=== PATIENT | male | born 1940 | race Caucasian/White ===

== ENCOUNTER 2023-12-26 07:05 | Outpatient (CLI) | payer OTHER, SELFPAY ==
--- NOTE | 2023-12-26 07:15 | MR_ITS ---
[address] [address] Phone:?[phone] Fax:?[phone] Referring Physician Information: Petar Leblanc M.D. [address] [address] Phone:?[phone] Fax:?[phone] Patient:Loren Ríos D.O.B:?[id number] Sex:?Male Phone:?[phone] [facility] MRN:?[id number] Exam Date:?12/26/2023 EXAM: MRI of the RIGHT HIP, without contrast CLINICAL: Male, 83 years old, with right hip pain extending down right leg. INDICATION: Evaluate for stress fracture versus other hip derangement etiology. PRIOR SURGERY: None reported. PLAIN FILMS: 12/23/2023 radiographic series of the right hip. COMPARISONS: No prior MRIs available. TECHNICAL: Using a 1.5T MR scanner: 3.0 mm?coronals: PD, T2 3.0 mm?sagittals: PD, T2 4.0 mm oblique?axials: PD 4.0 mm?axials: PDFS 5.0 mm?coronals: T1, STIR of pelvis including hips SEDATION: None. CONTRAST: None. IMPRESSION: 1. No stress/occult fracture or marrow edema. 2. Broad-based degeneration of the acetabular labrum with some additional irregularity/tear anterosuperiorly, of indeterminate significance for age. 3. 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 - Mild femoral cam morphology with potential to contribute cam mechanism of any clinically suspected LUCERO. - High normal volume hip without acetabular retroversion. - Fibrocystic osseous lesion of the anterosuperior femoral head-neck junction which can be associated with residua of LUCERO. 4. No myotendinous abnormalities. 5. No convincing full-thickness right hip chondromalacia/osteoarthritis or pathologic effusion. FINDINGS: Hip joint: Effusion: Physiologic hip effusion. Ganglion/paralabral cyst: None. Articular cartilage: Uniform, without demonstrable full-thickness chondromalacia or premature osteoarthritis. Loose bodies: None. Labrum: There appears some ill-defined signal alteration in keeping with degeneration, irregularity and more focal linear tear of the anterosuperior labrum (oblique axial PD series 6, images 18-12; sagittal images 26-22). The posterosuperior labrum also appears associated with degeneration. Proximal femur: No femoral occult fracture, bone stress injury, marrow edema or osteonecrosis. However, there is suspected fibrocystic osseous lesion of subcortical marrow of the anterosuperior femoral head-neck junction, a finding which can be associated with residua of femoroacetabular impingement (coronal STIR series 2, images 16- 14). Mild decreased sulcus and decreased femoral head-neck offset of the anterosuperior into anteroinferior femoral head-neck junction reflects femoral cam morphology with potential to predispose cam mechanism of any clinically evident femoroacetabular impingement (LUCERO). Based on oblique axial series 6, image 14 at approximately 2:30 o'clock anterosuperiorly, the maximum femoral alpha angle measures mildly elevated at approximately 60?. Acetabulum: No subchondral cysts, periacetabular ossicles or marrow edema. Version: No acetabular retroversion. Coverage: Right lateral center edge (CE) angle measures high normal at approximately 37? (corrected for any pelvic tilt) (normal 25?-39?), midline coronal series 4, image 14. Ligamentum teres: Intact and unremarkable. Pelvis osseous structures: Sacrum: No stress/insufficiency fractures or marrow edema/pathology. Sacroiliac joints: No demonstrable sacroiliitis. Pubic rami: No stress/insufficiency fractures or marrow edema/pathology. Symphysis pubis: No ongoing osteitis pubis. AIIS: Superoinferior extent: 3 mm superior to the level of the acetabular roof. Anterior extent: 13 mm anterior to the anterior mid-acetabular rim. Myotendinous structures: Gluteus abductors: No convincing insertional tendinopathy or tear of gluteus minimus or medius. Adductors: No demonstrable tendinopathy or strain/tear. Rectus abdominis: No demonstrable tear/strain. Pre-pubic aponeurotic complex: Intact, without evidence of common rectus abdominis-adductor longus aponeurosis or pubic plate lesion. Hamstrings: Intact semimembranosus, semitendinosus and biceps femoris tendons, without tendinopathy or tear. Flexors: Intact iliopsoas and rectus femoris, without strain/tear. External rotators: Intact, without demonstrable ischiofemoral impingement. Gluteal aponeurotic fascia and IT band: Unremarkable. Bursae: No demonstrable trochanteric, iliopsoas, or iliopectineal bursitis. Intrapelvic contents: Free fluid: No free fluid seen within the pelvis. Pelvic viscera: No discrete intrapelvic mass is identified. Lymph nodes: No pathologically enlarged lymphadenopathy. Neurovascular structures: No discrete cyst, mass or other compression upon the portions visualized of sciatic or femoral nerves. [facility] Electronically signed on 12/26/2023 11:23:00 AM by Bartolome Ward M.D.
== END 2023-12-26 07:06 | disposition home or self-care (01) ==
PROVIDERS: PCP Family Medicine; Visit Provider Orthopaedic Surgery Sports Medicine
DX: M25.551 Pain in right hip (principal)
CPT/HCPCS: 73721

== ENCOUNTER 2024-01-20 08:04 | Outpatient (CLI) | payer OTHER, SELFPAY ==
--- NOTE | 2024-01-20 08:15 | MR_ITS ---
Patient: DAGO HUNTER Facility:?[facility] Patient ID:?[id number] Site Patient ID:?[id number]. Site :?[id number] Study:?MRI-Spine Lumbar W/O-01/20/2024 8:57:33 AM Ordering Physician:RUFINO HARRINGTON Final Report: Indication: Lumbar radiculopathy. Technique: T2, T1, and STIR sagittal as well as T1 and T2 axial sequences were obtained. No IV contrast. Comparison: X-rays from [facility] dated 01/15/2024. Findings: There is low-grade degenerative retrolisthesis at L1-2 and L2-3, and low-grade degenerative anterolisthesis at L4-5 and L5-S1. Alignment appears unchanged from 01/15/2024. No evidence for recent fracture, worrisome bone lesion or pars defect. Mild chronic loss of anterior vertebral body height at the T12 level, unchanged. Degenerative changes result in moderate thecal sac effacement at the L2-3, L3-4 and L4-5 levels. No high-grade central canal stenosis. The conus and cauda equina are unremarkable, with the tip of the cord at the L1 level. Renal cysts noted. Minor degenerative changes involving both sacroiliac joints. T12-L1: Moderate disc degeneration. Mild facet osteoarthritis. Mild foraminal narrowing. L1-2: Mild disc and facet degenerative changes. The foramina are patent. L2-3: Moderate disc degeneration. Moderate facet osteoarthritis. Asymmetric right posterolateral disc bulging with potential impingement on the right L2 root as it exits the foramen. Narrowing of the neural foramina, mild left and moderate right. Moderate narrowing of the central canal and both subarticular recesses. L3-4: Moderate disc and bilateral facet degenerative changes. Moderate narrowing of the central canal and both subarticular recesses. Mild left and moderate right foraminal narrowing. L4-5: Severe bilateral facet osteoarthritis. Moderate disc degeneration. Moderate narrowing of both subarticular recesses. Mild right and moderate left foraminal narrowing. L5-S1: Severe bilateral facet osteoarthritis. Disc degeneration, most pronounced laterally on the left where interbody spurring contributes to low-grade foraminal narrowing. Impression: 1. There is moderate thecal sac effacement at the mid lumbar interspace levels. No high-grade central canal stenosis in the lumbar region. 2. Severe facet osteoarthritis at L4-5 and L5-S1. Moderate facet osteoarthritis at L2-3 and L3-4. 3. Asymmetric right posterolateral disc bulging at L2-3, with potential impingement on the right L2 root exiting the right foramen. 4. Multilevel mild to moderate narrowing of the neural foramina and subarticular recesses as noted. Dictated by Kolton Emerson MD @ 01/20/2024 2:51:23 PM Signed by:?Kolton Emerson MD @01/20/2024 2:51:23 PM (Electronic Signature)
== END 2024-01-20 08:05 | disposition home or self-care (01) ==
PROVIDERS: PCP Family Medicine; Visit Provider Family Medicine
DX: M54.16 Radiculopathy, lumbar region (principal); M47.896 Other spondylosis, lumbar region; M51.26 Other intervertebral disc displacement, lumbar region
CPT/HCPCS: 72148

== ENCOUNTER 2024-02-17 08:11 | Outpatient (CLI) | payer OTHER, SELFPAY | END 2024-02-17 08:12 | disposition home or self-care (01) | LOC: INJ CL 08:11 | PROVIDERS: PCP Family Medicine; Visit Provider Family Medicine | DX: M54.16 Radiculopathy, lumbar region (principal); M51.26 Other intervertebral disc displacement, lumbar region | CPT/HCPCS: 64483; J1100; Q9966 ==

== ENCOUNTER 2024-03-27 09:10 | Emergency (ER) | payer BC, SELFPAY ==
[2024-03-27 09:14] VITALS: BP 115/65; PULSE 76; RESP 18; TEMP 36.5; O2SAT 94; BMI 23.6
--- NOTE | 2024-03-27 09:17 | CRLHL7_ITS ---
For Patients: As a result of the Cures Act, medical imaging exams and procedure reports are released immediately into your electronic medical record. You may view this report before your referring provider. If you have questions, please contact your health care provider. INDICATION: Fall TECHNIQUE: Two views left forearm FINDINGS/IMPRESSION: Ossific density along the dorsal wrist with soft tissue swelling most likely reflecting a triquetral fracture. Dictated by Afia Pettit MD @ 03/27/2024 10:17:09 AM (Electronically Signed)
--- NOTE | 2024-03-27 09:17 | CRLHL7_ITS ---
For Patients: As a result of the Century Cures Act, medical imaging exams and procedure reports are released immediately into your electronic medical record. You may view this report before your referring provider. If you have questions, please contact your health care provider. Indication: Fall Comparison: None available. Technique: AP, lateral, and oblique views left wrist were obtained. Findings: There is demonstration of corticated fragment seen over the dorsum of the wrist likely representing a triquetral fracture. No other displaced injuries are appreciated. Moderate degenerative changes of the radiocarpal joint are appreciated with subchondral cystic change of the scaphoid bone. Moderate carpal soft tissue swelling. Impression: Moderate carpal soft tissue swelling with demonstration of a corticated fragment projecting over the dorsum of the wrist likely representing a triquetral fracture. Dictated by Rudy Ibrahim MD @ 03/27/2024 9:51:27 AM (Electronically Signed)
--- NOTE | 2024-03-27 09:17 | ED_ITS ---
HPI - General Adult General Chief complaint: Extremity Pain/Injury, Upper Stated complaint: Fall yesterday, L arm injured Time Seen by Provider: 03/27/24 09:16 History of Present Illness HPI narrative: Patient is a pleasant 84-year-old male who is on baby aspirin Plavix for 4 stents in his heart, he fell yesterday landing on his left wrist he did not hurt initially, finish his bike ride, even mow the lawn and then subsequently it started swelling and he had more pain he presents today for evaluation. He has notice a discolored ecchymotic area over his left dorsal wrist and he has had some limited range of motion secondary to the swelling. He has got no other injuries in his proximal arm or elbow. Denies loss conscious or hitting his head or neck or back. He is ambulatory without difficulty. He has had a history of lumbar radiculopathy amyloidosis, and fibroma of a bone, and coronary artery disease with stenting on Plavix and aspirin. Related Data Home Medications ?Medication ?Instructions ?Recorded ?Confirmed clopidogrel 75 mg tablet 75 mg PO DAILY 12/25/23 03/04/24 isosorbide mononitrate 30 mg 30 mg PO DAILY 12/25/23 03/04/24 tablet,extended release 24 hr ketoconazole 2 % topical cream 1 applic topical 12/25/23 03/04/24 metoprolol succinate 25 mg 25 mg PO DAILY 12/25/23 03/04/24 tablet,extended release 24 hr rosuvastatin 20 mg tablet 20 mg PO QPM 12/25/23 03/04/24 tafamidis 61 mg capsule (Vyndamax) 61 mg PO DAILY 12/25/23 03/04/24 triamcinolone acetonide 0.1 % applic topical 12/25/23 03/04/24 topical cream Previous Rx's ?Medication ?Instructions ?Recorded gabapentin 300 mg capsule 300 mg PO TID #90 caps 03/16/24 Allergies Allergy/AdvReac Type Severity Reaction Status Date / Time No Known Drug Allergies Allergy Unverified 03/04/24 13:57 Review of Systems Status of ROS: Reports: 6 or more systems reviewed and unremarkable except as noted in History and below [facility] Medical History Osteoarthritis of left knee ?M17.12 - Unilateral primary osteoarthritis, left knee (ICD-10) DVT (deep venous thrombosis) (2007) ?I82.409 - Acute embolism and thrombosis of unspecified deep veins of unspecified lower extremity (ICD-10) Surgical History Hx of cystoscopy ?Z98.890 - Other specified postprocedural states (ICD-10) H/O inguinal hernia repair (1997) ?Z98.890 - Other specified postprocedural states (ICD-10) ?Z87.19 - Personal history of other diseases of the digestive system (ICD-10) History of open reduction and internal fixation (ORIF) procedure (2000) ?Z98.890 - Other specified postprocedural states (ICD-10) History of cataract extraction ?Z98.49 - Cataract extraction status, unspecified eye (ICD-10) H/O arthroscopy of left knee (12/2011) ?Z98.890 - Other specified postprocedural states (ICD-10) History of arthroscopy of right knee ?Z98.890 - Other specified postprocedural states (ICD-10) History of carpal tunnel surgery of right wrist ?Z98.890 - Other specified postprocedural states (ICD-10) History of carpal tunnel surgery of left wrist (08/25/17) ?Z98.890 - Other specified postprocedural states (ICD-10) History of YAG laser capsulotomy of lens of left eye (12/15/19) ?Z98.42 - Cataract extraction status, left eye (ICD-10) History of YAG laser capsulotomy of lens of right eye (11/17/19) ?Z98.41 - Cataract extraction status, right eye (ICD-10) Social History Narrative: -Mary former smoker-1965 Smoking Status: Former smoker What tobacco products do you use: cigarettes Smoking quit date/years: >15 years ago Do you use any of these nicotine containing products: None Second hand tobacco smoke exposure: No Non-prescribed substance use: denies use Exam Narrative: Exam Narrative: Objective: Patient's vital signs are within normal limits No complaint of neck or back pain He got ecchymotic area over his left dorsal wrist mild soft tissue swelling, some mild tenderness over the ulnar styloid No open wounds noted distal CMS is intact No proximal mid forearm pain elbows normal no shoulder pain. No open wounds noted about the wrist. No neck pain, no back pain, no lower extremity symptoms or pelvic pain. Patient did not hit his head Const: Vital Signs, click to edit/add: Vital Signs - 24 hr 03/27/24 09:14 Temperature 97.7 F Pulse Rate [Right Pulse Oximeter] 76 Respiratory Rate 18 Blood Pressure [Ri ght Upper Arm] 115/65 Pulse Oximetry 94 Oxygen Delivery Me thod Room Air Course Vital Signs Vital signs: Initial Vital Signs Temperature 97.7 F 03/27/24 09:14 Temperature Source Temporal Artery Scan 03/27/24 09:14 Pulse Rate 76 03/27/24 09:14 Respiratory Rate 18 03/27/24 09:14 Blood Pressure 115/65 03/27/24 09:14 Blood Pressure Mean 81 03/27/24 09:14 Blood Pressure Position Sitting 03/27/24 09:14 Pulse Oximetry 94 03/27/24 09:14 Oxygen Delivery Method Room Air 03/27/24 09:14 Vital Signs Temperature 97.7 F 03/27/24 09:14 Pulse Rate 76 03/27/24 09:14 Respiratory Rate 18 03/27/24 09:14 Blood Pressure 115/65 03/27/24 09:14 Pulse Oximetry 94 03/27/24 09:14 Oxygen Delivery Method Room Air 03/27/24 09:14 Temperature 97.7 F 03/27/24 09:14 Pulse Rate 76 03/27/24 09:14 Respiratory Rate 18 03/27/24 09:14 Blood Pressure 115/65 03/27/24 09:14 Pulse Oximetry 94 03/27/24 09:14 Oxygen Delivery Method Room Air 03/27/24 09:14 Medical Decision Making MDM Narrative Medical decision making narrative: [age] white male on Plavix and aspirin for coronary disease and stenting, fell with a left wrist injury. No gross deformity but lot of soft tissue swelling. Certainly this could be hematoma, rule out fracture. Patient will get x-ray of his wrist and forearm. Addendum 9:48 a.m.: By my review the patient has a chip in his wrist, it looks fairly acute, it looks like it is off 1 of the carpal bones. Have placed him in a thumb spica splint. Will have him follow-up with Orthopedics, await Radiology overreading of his film. Will get him an arm sling. He can take Tylenol as needed. Elevation and discussed. Discharge Plan Discharge Clinical Impression: Fall, Injury of left wrist Patient Disposition: Home w/ Parent or Adult Condition: Improved Additional Instructions: Follow-up ortho as scheduled, keep the arm elevated, use the arm sling as needed, Tylenol as needed. Activity Level: Light activity Discharge Diet: Regular Prescriptions: No Action rosuvastatin 20 mg tablet 20 mg PO QPM clopidogrel 75 mg tablet 75 mg PO DAILY isosorbide mononitrate 30 mg tablet extended release 24 hr 30 mg PO DAILY triamcinolone acetonide 0.1 % cream topical metoprolol succinate 25 mg tablet extended release 24 hr 25 mg PO DAILY ketoconazole 2 % cream 1 applic topical Vyndamax 61 mg capsule 61 mg PO DAILY gabapentin 300 mg capsule 300 mg PO TID Qty: 90 3RF Follow Up/Referrals: Sid Ferguson MD [Primary Care Provider] - Stand [facility]one [facility] Inst[facility]
== END 2024-03-27 10:21 | disposition home or self-care (01) ==
PROVIDERS: Emergency Provider Family Medicine; PCP Family Medicine
DX: S69.92XA Unspecified injury of left wrist, hand and finger(s), initial encounter (principal); W19.XXXA Unspecified fall, initial encounter
CPT/HCPCS: 73090; 73110; 99283; 99284

== ENCOUNTER 2024-04-01 14:00 | Outpatient (RCR) | payer OTHER, BC, SELFPAY ==
--- NOTE | 2024-02-03 13:06 | PT.OPEX ---
PT [place] Outpatient Eval PT [facility] Outpatient Eval Start: 02/03/24 07:29 Freq: Status: Active Protocol: Document 02/03/24 07:30 CRP (Rec: 02/03/24 13:03 CRP [id number]) E-signed By Yadiel Rose PT Physical Therapy Outpatient Evaluation Insurance Information Recert Due Date 05/03/24 Medical Diagnosis Lumbar radiculopathy Referring MD Dr Sanders Subjective Subjective Pt c.o primary pain R thigh December 21 lifted a heavy suitcase and began having severe pain. Since then his sxs have been severe. Pain levels 7-9/10. Cannot find comfortable position to sleep. Pain increases with prolonged standing or walking. Will be achy with sitting. Needs to walk with a cane for safety and at times the R thigh will give out. Has had meds including prednisone and pain meds. Just started gabapentin last night. Has attempted recumbent bike but needed to stop secondary to pain. Denies any bowel or bladder issues. Denies numbness or tingling. 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 Does get short of breath. Objective Other/Pertinent Objective Posture - flattened lumbar spine Trunk ROM: flex 75% dec with pain. Ext 75% dec. R SB 50% dec with R thigh pain. L SB caused pulling pain R trunk. Bilat rot min dec. Hip ROM: flex 110 bilat. ER 40 deg bilat. IR 5 deg bilat. Some increase in pain with the totality of movement. SLR negative bilat for reproduction of pain. Did show decreased ROM on R. MMT: L LE 5/5. R knee ext 4+/ 5 Gait: shows decreased wt bearing on R LE. Does not go into full knee ext on R. Uses a cane. Functional Test Performed & Score Oswestry 72 Assessment Assessment/Impression Pt presents to the clinic with signs and sxs that are consistent with lumbar spine radiculopathy and resulting pain into his R thigh. Pt demonstrates painful loss of trunk ROM, weakness into the right LE, poor tolerance to standing and walking and balance deficits. PT will incorporate ther ex, nm adela, manual therapy and ther act to decrease pain and improve functional mobility. Primary Functional Limitations Sleep Walking Standing Bending Lifting Biking Plan of Care Rehabilitation Potential Excellent Physical Therapy Goals 1. Pt will be independent with HEP in 8 weeks. 2. Pt will walk without AD and without pain for exer times 20 minutes in 10 weeks. 3. Pt will sleep through the night with 90% decrease in pain in 12 weeks. Coordination/Communication With Referral Source Treatment Plan/Direct Interventions Gait Training,Joint Mobilization,Manual Therapy, Neuromuscular Re-ed,Self-Care/ Home Management,Therapeutic Activities,Therapeutic Exercises,Traction (Mechanical ) Frequency/Duration 1-2x/wk for 12 weeks Patient Will Be Discharged From Therapy Completion of LTG(s),Skills Plateau,Independent w/HEP, Independently Progressing Evaluation Billing Untimed Code Treatment Minutes 40 Complexity Moderate Certification Information Initial Certification Date 02/03/24 Ending Certification Date 05/03/24 Provider Signature Shows Agreement With POC & Medical Necessity Physician Signature & Date Requested Please Sign/Date Here Physician Comment/Change : Physician NPI Number #
== END 2024-07-30 23:59 | disposition home or self-care (01) ==
PROVIDERS: PCP Family Medicine; Visit Provider Family Medicine
DX: M54.16 Radiculopathy, lumbar region (principal); Z51.89 Encounter for other specified aftercare
CPT/HCPCS: 97110; 97140; 97162